=== PATIENT | female | born 1975 | race African-American/Black ===

== ENCOUNTER 2019-12-25 17:47 | Emergency (ER) | payer MEDICAID ==
[~2019-12-25] VITALS: Ht 165.1 cm; Wt 48.0 kg
[~2019-12-25 17:47] MED LIST: IBUPROFEN; IRON
[2019-12-25 18:47] VITALS: BP 127/54
== END 2019-12-25 18:48 | disposition home or self-care (01) ==
LOC: ER 17:47
DX: R10.2 Pelvic and perineal pain (principal); D64.9 Anemia, unspecified; J45.909 Unspecified asthma, uncomplicated; Z98.890 Other specified postprocedural states; Z88.6 Allergy status to analgesic agent
CPT/HCPCS: 93005; 99283

== ENCOUNTER 2020-05-20 11:00 | Emergency (ER) | payer MEDICAID | END 2020-05-20 14:01 | disposition left against medical advice (07) | LOC: ER 11:19 | DX: M25.562 Pain in left knee (principal); Z53.21 Procedure and treatment not carried out due to patient leaving prior to being seen by health care provider ==